=== PATIENT | female | born 1985 | race Caucasian/White ===

== ENCOUNTER 2017-04-27 07:30 | Emergency (ER) | payer SELFPAY ==
[~2017-04-27] VITALS: Ht 167.6 cm; Wt 80.0 kg
[2017-04-27 07:36] VITALS: BP 92/52; PULSE 81; RESP 16; TEMP 97.6; O2SAT 99
[2017-04-27 07:44] VITALS: BP 101/57; PULSE 88; RESP 16; O2SAT 100
[2017-04-27] MEDS ORDERED: METF500T PO ×2 (07:45→11:20)
[2017-04-27] MEDS ORDERED: SODIUM CHLOR 0.9% 1000 ML INJ 1,000 ML IV ONE (08:00)
[2017-04-27] MEDS ORDERED: METOCLOPRAMIDE INJ 10 MG in SODIUM CHLORIDE 0.9% INJ 50 ML IV ONE (08:00)
[2017-04-27] MEDS ORDERED: diphenhydrAMINE HCL 50 MG/ML VIAL IV PUSH ONE (08:00)
[2017-04-27] MEDS ORDERED: ACETAMINOPHEN 325 MG TAB PO ONE (08:00)
--- NOTE | 2017-04-27 08:20 | PD ---
HPI Chief Complaint: Neuro Symptoms/ Deficits Time Seen by Provider: 07:42 Travel History International Travel<30 days: No Contact w/Intl Traveler<30days: No Traveled to known affect area: No History of Present Illness HPI Patient is a 32 year old female who comes in complaining of numbness to the right side of her face, which she noticed this morning while brushing her teeth. She says she has also had a left sided headache and pain behind her right eye. She denies any head injury. She took some Ibuprofen without relief of her symptoms. She says this has never happened before. She denies chest pain or SOB. She denies fever or chills. Severity is mild to moderate. PFSH Past Medical History Diabetes: Yes Patient Takes Glucophage: Yes Tetanus Vaccination: < 5 Years Influenza Vaccination: No ?: Not LMP: 04/2017 Past Surgical History Section: Yes (X3) Social History Alcohol Use: No Tobacco Use: No Substance Use: No Allergies-Medications (Allergen,Severity, Reaction): Coded Allergies: No Known Allergies (Unverified , 04/27/17) Reported Meds & Prescriptions Reported Meds & Active Scripts Active Reported Metformin (Metformin HCl) 500 Mg Tab 500 Mg PO DAILY With a meal Review of Systems Except as stated in HPI: all other systems reviewed are Neg General / Constitutional: No: Fever, Chills Eyes: No: Blurred Vision HENT: Positive: Headaches Cardiovascular: No: Chest Pain or Discomfort Respiratory: No: Shortness of Breath Gastrointestinal: No: Nausea, Vomiting Skin: No Rash, No Change in Pigmentation Neurologic: Positive: Sensory Disturbance Physical Exam Narrative GENERAL: Awake and alert, in no acute distress. SKIN: Focused skin assessment warm/dry. No wounds or signs of infection. HEAD: Atraumatic. Normocephalic. EYES: Pupils equal and round and reactive. No scleral icterus. EOMI. ENT: Mucous membranes pink and moist. NECK: Trachea midline. No JVD. Tender to palpation of right trapezius muscle. CARDIOVASCULAR: Regular rate and rhythm. No murmur appreciated. RESPIRATORY: No accessory muscle use. Clear to auscultation. Breath sounds equal bilaterally. GASTROINTESTINAL: Abdomen soft, non-tender, nondistended. MUSCULOSKELETAL: No obvious deformities. No clubbing. No cyanosis. No edema. NEUROLOGICAL: Awake and alert. No obvious cranial nerve deficits. Motor grossly within normal limits. Normal speech. loss of light touch sensation to right side of the face. PSYCHIATRIC: Appropriate mood and affect; insight and judgment normal. Data Data Last Documented VS Vital Signs Date Time Temp Pulse Resp B/P (MAP) Pulse Ox O2 Delivery O2 Flow Rate FiO2 04/27/17 10:30 81 15 104/63 (77) 98 Room Air 04/27/17 07:[address] Brain W/O Iv Contrast(Rout) (04/27/17 ) Iv Access Insert/Monitor (04/27/17 07:49) Complete Blood Count With Diff (04/27/17 07:49) Ed Urine Pregnancytest Poc (04/27/17 07:49) Comprehensive Metabolic Panel (04/27/17 07:49) Sodium Chlor 0.9% 1000 Ml Inj (Ns 1000 M (04/27/17 08:00) Acetaminophen (Tylenol) (04/27/17 08:00) Metoclopramide Inj (Reglan Inj) (04/27/17 08:00) Diphenhydramine Inj (Benadryl Inj) (04/27/17 08:00) Labs Laboratory Tests Test 04/27/17 07:50 04/27/17 08:40 White Blood Count 5.4 TH/MM3 Red Blood Count 4.65 MIL/MM3 Hemoglobin 13.2 GM/DL Hematocrit 39.2 % Mean Corpuscular Volume 84.2 FL Mean Corpuscular Hemoglobin 28.3 PG Mean Corpuscular Hemoglobin Concent 33.6 % Red Cell Distribution Width 13.7 % Platelet Count 285 TH/MM3 Mean Platelet Volume 9.7 FL Neutrophils (%) (Auto) 53.5 % Lymphocytes (%) (Auto) 34.2 % Monocytes (%) (Auto) 5.4 % Eosinophils (%) (Auto) 4.9 % Basophils (%) (Auto) 2.0 % Neutrophils # (Auto) 3.4 TH/MM3 Lymphocytes # (Auto) 2.1 TH/MM3 Monocytes # (Auto) 0.3 TH/MM3 Eosinophils # (Auto) 0.3 TH/MM3 Basophils # (Auto) 0.1 TH/MM3 CBC Comment DIFF FINAL Differential Comment Blood Urea Nitrogen 10 MG/DL Creatinine 0.62 MG/DL Random Glucose 357 MG/DL Total Protein 7.0 GM/DL Albumin 3.2 GM/DL Calcium Level 7.5 MG/DL Alkaline Phosphatase 94 U/L Total Bilirubin 0.6 MG/DL Sodium Level 133 MEQ/L Potassium Level 4.5 MEQ/L Chloride Level 100 MEQ/L Carbon Dioxide Level 15.2 MEQ/L Anion Gap 18 MEQ/L Estimat Glomerular Filtration Rate 111 ML/MIN [facility] Medical Decision Making Medical Screen Exam Complete: Yes Emergency Medical Condition: Yes Differential Diagnosis Migraine vs bells palsy vs electrolyte abnormalities Narrative Course Patient is a 32 year old female who comes in complaining of numbness to the side of her face and headache. Exam shows decreased light touch sensation on the right side of her face, no other abnormalities. IV established, labs sent. Labs show elevated blood sugar (she is diabetic and is out of her metformin). CT head performed shows no acute abnormalities. Last [address] 04/27/17 0000 Signed Impressions: Service Date/Time: Thursday, April 27, 2017 08:34 - CONCLUSION: 1. No acute intracranial abnormalities. Meño Erickson MD Given IVF, Benadryl, Compazine, Toradol. She reports improvement of her symptoms, she can now feel me touching the side of her face. Her says this happened a while ago and she was given something for anxiety and it went away. She requests a prescription for her Metformin. [facility] Advised to return at any time for any worsening symptoms. Diagnosis Primary Impression: Numbness Additional Impression: Headache Qualified Codes: R51 - Headache Referrals: [facility] call for appointment Patient Instructions: Acute Headache (ED), General Instructions, Paresthesia ( ED) Additional Instructions: Follow up with [facility]. Take Tylenol or Ibuprofen as needed for headache. Drink plenty of water. Return to the ED as needed for any worsening symptoms. Scripts Metformin (Metformin) 500 Mg Tab 500 MG PO DAILY for Blood Sugar Management, #30 TAB 0 Refills With a meal Prov: Mayr Zamudio MD 04/27/17 Disposition: 01 DISCHARGE HOME Condition: Stable Mary Zamudio MD Apr 27, 2017 08:20
[2017-04-27 08:40] LABS: AUTOMATED NEUTROPHIL # 3.4 TH/MM3 (1.8-7.7); BASOPHIL # 0.1 TH/MM3 (0-0.2); EOSINOPHIL # 0.3 TH/MM3 (0-0.4); EOSINOPHIL % 4.9 % (0.0-4.0); LYMPH % 34.2 % (9.0-44.0); LYMPHOCYTE # 2.1 TH/MM3 (1.0-4.8); MONO % 5.4 % (0.0-8.0); MONOCYTE # 0.3 TH/MM3 (0-0.9); NEUT % 53.5 % (16.0-70.0)
[2017-04-27 08:58] LABS: HEMATOCRIT 39.2 % (35.0-46.0); HEMOGLOBIN 13.2 GM/DL (11.6-15.3); MEAN CELL VOLUME 84.2 FL (80.0-100.0); MEAN CORPUSCULAR HEMOGLOBIN 28.3 PG (27.0-34.0); MEAN CORPUSCULAR HGB CONC 33.6 % (32.0-36.0); MEAN PLATELET VOLUME 9.7 FL (7.0-11.0); PLATELET COUNT 285 TH/MM3 (150-450); RED BLOOD COUNT 4.65 MIL/MM3 (4.00-5.30); RED CELL DISTRIBUTION WIDTH 13.7 % (11.6-17.2); WHITE BLOOD COUNT 5.4 TH/MM3 (4.0-11.0)
[2017-04-27 09:24] LABS: ALKALINE PHOSPHATASE 94 U/L (45-117); TOTAL BILIRUBIN ADULT 0.6 MG/DL (0.2-1.0)
--- NOTE | 2017-04-27 09:31 | RADRPT ---
EXAM DATE/TIME: 04/27/2017 08:34 [place] COMPARISON: None. INDICATIONS : <<Cephalgia, right facial droop>> RADIATION DOSE: <<32.58>> CTDIvol (mGy) MEDICAL HISTORY : Diabetes SURGICAL HISTORY : None. ENCOUNTER: Initial ACUITY: 1 day PAIN SCALE: 5/10 LOCATION: cranial TECHNIQUE: Multiple contiguous axial images were obtained of the head. Using automated exposure control and adj ustment of the mA and/or kV according to patient size, radiation dose was kept as low as reasonably a chievable to obtain optimal diagnostic quality images. DICOM format image data is available electro nically for review and comparison. FINDINGS: CEREBRUM: The ventricles are normal for age. No evidence of midline shift, mass lesion, hemorrhage or acute in farction. No extra-axial fluid collections are seen. POSTERIOR FOSSA: The cerebellum and brainstem are intact. The 4th ventricle is midline. The cerebellopontine angle i s unremarkable. EXTRACRANIAL: The visualized portion of the orbits is intact. SKULL: The calvaria is intact. No evidence of skull fracture. CONCLUSION: 1. No acute intracranial abnormalities. Meño Erickson MD on April 27, 2017 at 9:28 Board Certified Radiologist. This report was verified electronically.
[2017-04-27 10:30] VITALS: BP 104/63; PULSE 81; RESP 15; O2SAT 98
[2017-04-27 10:54] LABS: ALBUMIN 3.2 GM/DL (3.4-5.0); BICARBONATE 15.2 MEQ/L (21.0-32.0); BLOOD UREA NITROGEN 10 MG/DL (7-18); CALCIUM 7.5 MG/DL (8.5-10.1); CHLORIDE 100 MEQ/L (98-107); CREATININE 0.62 MG/DL (0.50-1.00); GLOMERULAR FILTRATION RATE 111 ML/MIN (>89); SODIUM (NA) 133 MEQ/L (136-145)
[2017-04-27 10:55] LABS: GLUCOSE,RANDOM 357 MG/DL (74-106)
[2017-04-27 11:28] LABS: ALT (GPT) 112 U/L (10-53)
[2017-04-27 12:37] LABS: AST (GOT) 116 U/L (15-37)
== END 2017-04-27 11:33 | disposition home or self-care (01) ==
LOC: NEPC 07:30
DX: R20.0 Anesthesia of skin (principal); R51 Headache; E11.9 Type 2 diabetes mellitus without complications
CPT/HCPCS: 70450; 80053; 84703; 85025; 96365; 96375; 99284; J1200; J2765; J7030